=== PATIENT | female | born 1990 | race Caucasian/White ===

== ENCOUNTER 2016-11-19 17:23 | Emergency (ER) | payer BC ==
[~2016-11-19] VITALS: Ht 167.6 cm; Wt 72.1 kg
[~2016-11-19 17:23] MED LIST: BENZ2TAB5; BUSP30TA; HYDR453.3; HYDR50CA2; LAMO100T; MIRT30TA3; NALT50TA; QUET400T; TRAZ150T55; TRIA15CR
[2016-11-19] MEDS ORDERED: IV NORMAL SALINE 1000ML BAG 1,000 ML IV SCH (17:38)
[2016-11-19] MEDS ORDERED: 0.9 % SODIUM CHLORIDE 10 ML DISP.SYRIN. IV PRN (17:45)
--- NOTE | 2016-11-19 17:53 | PHYS DOC ---
Past Medical History Past Medical History: Anxiety, Bipolar, Depression, Seizure, Schizophrenia Past Surgical History: Appendectomy Smoking: Cigarettes Alcohol Use: None Drug Use: None Adult General Chief Complaint Chief Complaint: ABDOMINAL PAIN IN HPI HPI Joe is a pleasant 26-year-old female at about 2 weeks by last menstrual period is of lower crampy abdominal pain in the left and right that began early this morning. She did not know she was until this morning when she had 5 positive test at home. She's had mild spotting no active passage of clots or tissue. She denies any fevers denies any nausea or vomiting or diarrhea at this time. She denies any trauma denies any vaginal trauma or injury. She has had a history of HPV requiring a LEEP procedure and a prior appendectomy. She denies any other symptoms like back pain UTI symptoms like dysuria urgency or frequency. He denies any recent travel she is personally on clindamycin approximately day 8of 10 for a local cellulitic infection suspected to be MRSA. Review of Systems Review of Systems Constitutional: Denies fever or chills [] Eyes: Denies change in visual acuity, redness, or eye pain [] HENT: Denies nasal congestion or sore throat [] Respiratory: Denies cough or shortness of breath [] Cardiovascular: No additional information not addressed in HPI [] GI: No signs of lower abdominal pain described as crampy and achy over the left lower abdomen with radiation to the right lower abdomen. : Denies dysuria or hematuria [] Musculoskeletal: Denies back pain or joint pain [] Integument: Denies rash or skin lesions [] Neurologic: Denies headache, focal weakness or sensory changes [] Endocrine: Denies polyuria or polydipsia [] Family History Family History Noncontributory Current Medications Current Medications Current Medications Medications (Trade) Dose Ordered Sig/Gregg Start Time Stop Time Status Last Admin Dose Admin Sodium Chloride (Iv Sodium Chloride 0.9% 1000ml Bag) 1,000 ml @ 1,000 mls/hr Q1H 11/19/16 17:38 11/19/16 18:37 DC 11/19/16 18:07 1,000 MLS/HR Sodium Chloride (Normal Saline Flush) 10 ml QSHIFT PRN 11/19/16 17:45 Allergies Allergies Allergies Coded Allergies Type Severity Reaction Last Updated Verified Penicillins Allergy Intermediate 07/03/16 No cephalexin Allergy Intermediate 07/03/16 No doxycycline Allergy Intermediate 07/03/16 No hydrocodone Allergy Intermediate 07/03/16 No sulfamethoxazole Allergy Intermediate 07/03/16 No trimethoprim Allergy Intermediate 07/03/16 No Physical Exam Physical Exam Constitutional: Well developed, well nourished, no acute distress, non-toxic appearance. [] HENT: Normocephalic, atraumatic, bilateral external ears normal, oropharynx moist, no oral exudates, nose normal. [] Eyes: PERRLA, EOMI, conjunctiva normal, no discharge. [] Neck: Normal range of motion, no tenderness, supple, no stridor. [] Cardiovascular:Heart rate regular rhythm, no murmur [] Lungs & Thorax: Bilateral breath sounds clear to auscultation [] Abdomen: Abdomen is soft nontender nondistended no masses guarding rebound organomegaly patient has no Rovsing's and obturator sign. No Quiroz's or McBurney's point tenderness palpation Skin: Warm, dry, no erythema, no rash. [] Back: No tenderness, no CVA tenderness. [] Extremities: No tenderness, no cyanosis, no clubbing, ROM intact, no edema. [] Neurologic: Alert and oriented X 3, normal motor function, normal sensory function, no focal deficits noted. [] Psychologic: Affect normal, judgement normal, mood normal. [] Pelvic exam was deferred by patient Current Patient Data Vital Signs Vital Signs Date Time Temp Pulse Resp B/P Pulse Ox O2 Delivery O2 Flow Rate FiO2 11/19/16 19:33 86 120/60 98 Room Air 11/19/16 17:34 97.9 16 97.9 Lab Values Laboratory Tests Test 11/19/16 16:54 11/19/16 17:44 11/19/16 17:50 POC Urine HCG, Qualitative Hcg positive (Negative) Urine Collection Type Unknown Urine Color Yellow Urine Clarity Clear Urine pH 7.5 Urine Specific [place] 1.015 Urine Protein Negativemg/dL (NEG-TRACE) Urine Glucose (UA) Negativemg/dL (NEG) Urine Ketones (Stick) Negativemg/dL (NEG) Urine Blood Moderate (NEG) Urine Nitrite Negative (NEG) Urine Bilirubin Negative (NEG) Urine Urobilinogen Dipstick 0.2mg/dL (0.2 mg/dL) Urine Leukocyte Esterase Negative (NEG) Urine RBC 0/HPF (0-2) Urine WBC Occ/HPF (0-4) Urine Squamous Epithelial Cells Mod/LPF Urine Bacteria Few/HPF (0-FEW) White Blood Count 8.9x10^3/uL (4.0-11.0) Red Blood Count 4.83x10^6/uL (3.50-5.40) Hemoglobin 14.3g/dL (12.0-15.5) Hematocrit 42.9% (36.0-47.0) Mean Corpuscular Volume 89fL (79-100) Mean Corpuscular Hemoglobin 30pg (25-35) Mean Corpuscular Hemoglobin Concent 33g/dL (31-37) Red Cell Distribution Width 14.0% (11.5-14.5) Platelet Count 362x10^3/uL (140-400) Neutrophils (%) (Auto) 64% (31-73) Lymphocytes (%) (Auto) 28% (24-48) Monocytes (%) (Auto) 6% (0-9) Eosinophils (%) (Auto) 1% (0-3) Basophils (%) (Auto) 1% (0-3) Neutrophils # (Auto) 5.7x10^3uL (1.8-7.7) Lymphocytes # (Auto) 2.5x10^3/uL (1.0-4.8) Monocytes # (Auto) 0.5x10^3/uL (0.0-1.1) Eosinophils # (Auto) 0.1x10^3/uL (0.0-0.7) Basophils # (Auto) 0.1x10^3/uL (0.0-0.2) Maternal Serum HCG Beta Subunit 165mIU/mL (0-6) H Sodium Level 141mmol/L (136-145) Potassium Level 4.2mmol/L (3.5-5.1) Chloride Level 102mmol/L (98-107) Carbon Dioxide Level 30mmol/L (21-32) Anion Gap 9 (6-14) Blood Urea Nitrogen 12mg/dL (7-20) Creatinine 0.7mg/dL (0.6-1.0) Estimated GFR (Cockcroft-Gault) 102.8 BUN/Creatinine Ratio 17 (6-20) Glucose Level 78mg/dL (70-99) Calcium Level 9.3mg/dL (8.5-10.1) Total Bilirubin 0.3mg/dL (0.2-1.0) Aspartate Amino Transferase (AST) 17U/L (15-37) Alanine Aminotransferase (ALT) 32U/L (14-59) Alkaline Phosphatase 73U/L (46-116) Total Protein 7.5g/dL (6.4-8.2) Albumin 4.1g/dL (3.4-5.0) Albumin/Globulin Ratio 1.2 (1.0-1.7) Laboratory Tests 11/19/16 17:50 Laboratory Tests 11/19/16 17:50 EKG EKG [] Radiology/Procedures Radiology/Procedures [] Course & Med Decision Making Course & Med Decision Making Pertinent Labs and Imaging studies reviewed. (See chart for details) [Patient is a 26-year-old female who did not know she is early this morning we will need to ascertain whether is tubal ectopic patient's blood will be checked as well as quantitative hCG ultrasound and pelvic exam. Patient is presently with minimal pain hemodynamics stable as includes ovarian cyst, ovarian torsion, ectopic , early , UTI, kidney stone, diverticulitis, diverticulosis, not actual trauma, .] Signed PATIENT: JAZMINE KESSLER ACCOUNT: [id number] : 1990 LOCATION: ER AGE: 26 SEX: F EXAM STATUS: REG ER ORD. PHYSICIAN: CARLIN GALVIN MD REASON: abdominal pain PROCEDURE: OB <14 WKS W/TV Ultrasound Pelvis Indication:[Pelvic pain. Positive home test grayscale images were obtained over the pelvis transabdominally and transvaginally . Color Doppler imaging was utilized. Findings: The uterus is normal in size measuring 6.2 x 3.6 x 2.4 cm. The endometrium is within normal limits measuring less than 5 millimeters. There is a small amount of endometrial fluid. No gestational sac is appreciated. The right ovary is normal in size measuring 4.2 x 2.7 x 1.9 centimeters. Several follicles are noted, the largest of which measuring 1.4 centimeters. Normal ovarian arterial blood flow is noted. The left ovary measures 3.0 x 2.2 x 1.2cm. No abnormal left ovarian lesions are identified. Normal blood flow is identified. Amount of free fluid in the posterior cul-de-sac. Impression: - Pelvic sonogram within normal limits apart from mild fluid within the endometrial canal. No endometrial gestational sac is identified. Beta HCG was not available at the time of interpretation. If positive, follow-up sonogram is recommended. Electronically signed by: Víctor Brown (November 19, 2016 19:04:31) DICTATED and SIGNED BY: VÍCTOR BROWN MD DATE: 11/19/16 190 CC: CARLIN GALVIN MD; NO PCP ~ History is very comfortable she and I reviewed results of all laboratory work including hCG which has a level of 165. Ultrasound was completed demonstrating changes consistent with but no gestational sac or obvious endometrial sac was then applied. She was given precautions she realizes the limitation of not completing physical exam here in the emergency department she was also asked to return for worsening symptoms increasing bleeding or other weakness and expanding belly belly pain with bleeding. Patient is also asked to follow- up with her primary care doctor for repeat quantitative hCG in 48 hours either with her primary care doctor or here in the emergency department if symptoms continue. It is imperative that she have a repeat ultrasound to ensure that this is not in the full contusion or outside the uterus. She understands this risk and will follow up with her primary care doctor. It is noted that she is hemodynamics stable and abdomen is soft on discharge. We discussed the possibility of status as also cause for symptoms. And reasons to return. I told her if she was not able to make follow-up arrangements for her repeat blood work she come here at [facility] if necessary to ensure that she was safe. He was also given a handout with all local PCPs and are accepting new patients. Dragon Disclaimer Dragon Disclaimer This electronic medical record was generated, in whole or in part, using a voice recognition dictation system. Departure Departure Impression: Primary Impression: Threatened Additional Impressions: Abdominal pain Nausea & vomiting Disposition: HOME, SELF-CARE Referrals: NO PCP (PCP) Patient Instructions: Abdominal Pain During , Nausea and Vomiting, Threatened Miscarriage Scripts Ondansetron (Zofran Odt)4 Mg Tab.rapdis1 Tab SL Q8HRS #10 TAB Prov:CARLIN GALVIN MD 11/19/16 Acetaminophen (Tylenol)325 Mg Tablet1-2 Tab PO QID #60 TAB Ref 2 Prov:CARLIN GALVIN MD 11/19/16 Problem Qualifiers CARLIN GALVIN MD November 19, 2016 17:53
[2016-11-19 18:09] LABS: BILIRUBIN,URINE NEGATIVE (NEG); GLUCOSE,URINE NEGATIVE (NEG); NITRITE,URINE NEGATIVE (NEG); PH,URINE 7.5; PROTEIN,URINE NEGATIVE (NEG-TRACE); UROBILINOGEN,URINE 0.2 mg/dL (0.2 mg/dL)
[2016-11-19 18:17] LABS: BACTERIA,URINE FEW /HPF (0-FEW); RBC,URINE 0 /HPF (0-2); SQUAMOUS EPITHELIAL CELL,UR MOD /LPF; WBC,URINE OCC /HPF (0-4)
[2016-11-19 18:28] LABS: BASO # 0.1 x10^3/uL (0.0-0.2); BASO % 1 % (0-3); EOS % 1 % (0-3); HEMATOCRIT 42.9 % (36.0-47.0); HEMOGLOBIN 14.3 g/dL (12.0-15.5); LYMPH # 2.5 x10^3/uL (1.0-4.8); LYMPH % 28 % (24-48); MEAN CORPUSCULAR HEMOGLOBIN 30 pg (25-35); MEAN CORPUSCULAR HGB CONC 33 g/dL (31-37); MEAN CORPUSCULAR VOLUME 89 fL (79-100); MONO % 6 % (0-9); NEUT % 64 % (31-73); PLATELET COUNT 362 x10^3/uL (140-400); RED BLOOD COUNT 4.83 x10^6/uL (3.50-5.40); WHITE BLOOD COUNT 8.9 x10^3/uL (4.0-11.0)
[2016-11-19 18:43] LABS: CALCIUM 9.3 mg/dL (8.5-10.1); CREATININE 0.7 mg/dL (0.6-1.0); GFR 102.8; POTASSIUM 4.2 mmol/L (3.5-5.1)
[2016-11-19 18:48] LABS: ALBUMIN 4.1 g/dL (3.4-5.0); ALBUMIN/GLOBULIN RATIO 1.2 (1.0-1.7); TOTAL BILIRUBIN 0.3 mg/dL (0.2-1.0); TOTAL PROTEIN 7.5 g/dL (6.4-8.2)
--- NOTE | 2016-11-19 19:05 | RAD ---
Ultrasound Pelvis Indication:[Pelvic pain. Positive home test grayscale images were obtained over the pelvis transabdominally and transvaginally . Color Doppler imaging was utilized. Findings: The uterus is normal in size measuring 6.2 x 3.6 x 2.4 cm. The endometrium is within normal limits measuring less than 5 millimeters. There is a small amount of endometrial fluid. No gestational sac is appreciated. The right ovary is normal in size measuring 4.2 x 2.7 x 1.9 centimeters. Several follicles are noted, the largest of which measuring 1.4 centimeters. Normal ovarian arterial blood flow is noted. The left ovary measures 3.0 x 2.2 x 1.2cm. No abnormal left ovarian lesions are identified. Normal blood flow is identified. Amount of free fluid in the posterior cul-de-sac. Impression: - Pelvic sonogram within normal limits apart from mild fluid within the endometrial canal. No endometrial gestational sac is identified. Beta HCG was not available at the time of interpretation. If positive, follow-up sonogram is recommended. Electronically signed by: Víctor Brown (November 19, 2016 19:04:31)
[2016-11-19 19:33] VITALS: BP 120/60
[2016-11-19] MEDS ORDERED: ONDA4TAB10 SL (19:43)
[2016-11-19] MEDS ORDERED: ACET325T9 PO (19:43)
== END 2016-11-19 20:04 | disposition home or self-care (01) ==
LOC: ER 17:23
DX: O20.0 Threatened abortion (principal); R11.2 Nausea with vomiting, unspecified; F20.9 Schizophrenia, unspecified; F31.9 Bipolar disorder, unspecified; F32.9 Major depressive disorder, single episode, unspecified; F41.9 Anxiety disorder, unspecified; F17.210 Nicotine dependence, cigarettes, uncomplicated; Z90.49 Acquired absence of other specified parts of digestive tract
CPT/HCPCS: 36415; 76801; 76817; 80053; 81001; 84702; 84703; 85027; 86850; 86900; 86901; 96360; 99285; J7030; 81025

== ENCOUNTER 2016-11-20 22:22 | Emergency (ER) | payer BC ==
[~2016-11-20] VITALS: Ht 177.8 cm; Wt 72.1 kg
[~2016-11-20 22:22] MED LIST changes: +ACET325T9 PO; +ONDA4TAB10 SL
[2016-11-20 23:20] LABS: BILIRUBIN,URINE NEGATIVE (NEG); GLUCOSE,URINE NEGATIVE (NEG); NITRITE,URINE NEGATIVE (NEG); PH,URINE 5.5; PROTEIN,URINE NEGATIVE (NEG-TRACE); UROBILINOGEN,URINE 0.2 mg/dL (0.2 mg/dL)
[2016-11-20 23:30] LABS: BACTERIA,URINE 0 /HPF (0-FEW); RBC,URINE 0 /HPF (0-2); SQUAMOUS EPITHELIAL CELL,UR FEW /LPF; WBC,URINE 0 /HPF (0-4)
[2016-11-20 23:44] LABS: BASO # 0.1 x10^3/uL (0.0-0.2); BASO % 1 % (0-3); EOS % 1 % (0-3); HEMATOCRIT 43.4 % (36.0-47.0); HEMOGLOBIN 14.5 g/dL (12.0-15.5); LYMPH # 2.7 x10^3/uL (1.0-4.8); LYMPH % 20 % (24-48); MEAN CORPUSCULAR HEMOGLOBIN 30 pg (25-35); MEAN CORPUSCULAR HGB CONC 33 g/dL (31-37); MEAN CORPUSCULAR VOLUME 90 fL (79-100); MONO % 5 % (0-9); NEUT % 74 % (31-73); PLATELET COUNT 365 x10^3/uL (140-400); RED BLOOD COUNT 4.85 x10^6/uL (3.50-5.40); RED CELL DISTRIBUTION WIDTH 14.4 % (11.5-14.5); WHITE BLOOD COUNT 13.8 x10^3/uL (4.0-11.0)
[2016-11-20] MEDS ORDERED: fentaNYL PF VIAL 100 MCG/2 ML VIAL IV ONE (23:45)
[2016-11-20 23:57] LABS: CALCIUM 9.3 mg/dL (8.5-10.1); CREATININE 0.8 mg/dL (0.6-1.0); GFR 88.1; POTASSIUM 4.2 mmol/L (3.5-5.1)
[2016-11-21] VITALS: BP 109/60
[2016-11-21 00:04] LABS: ALBUMIN 4.4 g/dL (3.4-5.0); TOTAL BILIRUBIN 0.3 mg/dL (0.2-1.0); TOTAL PROTEIN 8.6 g/dL (6.4-8.2)
[2016-11-21] MEDS ORDERED: OXYC-323 PO (00:12)
--- NOTE | 2016-11-21 00:13 | PHYS DOC ---
Past Medical History Past Medical History: Anxiety, Bipolar, Depression, Seizure, Schizophrenia Past Surgical History: Appendectomy Alcohol Use: None Drug Use: None Adult General Chief Complaint Chief Complaint: ABDOMINAL PAIN IN HPI HPI Patient is a 26 year old female G1 approx 2wks who presents with continued left and mid lower abdominal cramping pains associated with vaginal bleeding and clots. Pain is moderate, constant. She was seen yesterday here for same and states bleeding is worse. She does not have an OB appointment yet. She has been taking tylenol prn pain. She denies f/c, n/v, diarrhea, constipation, fatigue, lightheadedness. Had bloodwork and OB ultrasound yesterday. Diagnosed with of unknown location and threatened miscarriage. Review of Systems Review of Systems Constitutional: Denies fever or chills [] Eyes: Denies change in visual acuity, redness, or eye pain [] HENT: Denies nasal congestion or sore throat [] Respiratory: Denies cough or shortness of breath [] Cardiovascular: No additional information not addressed in HPI [] GI: Denies nausea, vomiting, bloody stools or diarrhea [] : Denies dysuria or hematuria [] Musculoskeletal: Denies back pain or joint pain [] Integument: Denies rash or skin lesions [] Neurologic: Denies headache, focal weakness or sensory changes [] Endocrine: Denies polyuria or polydipsia [] Current Medications Current Medications Current Medications Medications (Trade) Dose Ordered Sig/Gregg Start Time Stop Time Status Last Admin Dose Admin Fentanyl Citrate (Fentanyl 2ml Vial) 50 mcg 1X ONCE 11/20/16 23:45 11/20/16 23:46 DC 11/20/16 23:43 50 MCG Ketorolac Tromethamine (Toradol) 15 mg 1X ONCE 11/21/16 00:15 11/21/16 00:19 DC Allergies Allergies Allergies Coded Allergies Type Severity Reaction Last Updated Verified Penicillins Allergy Intermediate 07/03/16 No cephalexin Allergy Intermediate 07/03/16 No doxycycline Allergy Intermediate 07/03/16 No hydrocodone Allergy Intermediate 07/03/16 No sulfamethoxazole Allergy Intermediate 07/03/16 No trimethoprim Allergy Intermediate 07/03/16 No Physical Exam Physical Exam Constitutional: Well developed, well nourished, no acute distress, non-toxic appearance. [] HENT: Normocephalic, atraumatic, bilateral external ears normal, oropharynx moist, nose normal. [] Eyes: PERRLA, EOMI. [] Neck: Normal range of motion, supple. [] Cardiovascular:Heart rate regular rhythm [] Lungs & Thorax: Bilateral breath sounds clear to auscultation [] Abdomen: Bowel sounds normal, soft, minimal suprapubic tenderness, no guarding or rebound. [] Skin: Warm, dry, no erythema, no rash. [] Back: No tenderness, no CVA tenderness. [] Extremities: No tenderness, ROM intact, no edema. [] Neurologic: Alert and oriented X 3, normal motor function, normal sensory function, no focal deficits noted. [] Psychologic: Affect normal, judgement normal, mood normal. [] Current Patient Data Vital Signs Vital Signs Date Time Temp Pulse Resp B/P (MAP) Pulse Ox O2 Delivery O2 Flow Rate FiO2 11/21/16 00:00 20 98 Room Air 11/21/16 00:00 84 109/60 (76) 11/20/16 23:11 98.1 98.1 Lab Values Laboratory Tests Test 11/20/16 22:02 11/20/16 22:30 11/20/16 23:30 POC Urine HCG, Qualitative Hcg positive (Negative) Urine Collection Type Unknown Urine Color Yellow Urine Clarity Clear Urine pH 5.5 Urine Specific [place] 1.010 Urine Protein Negative mg/dL (NEG-TRACE) Urine Glucose (UA) Negative mg/dL (NEG) Urine Ketones (Stick) Negative mg/dL (NEG) Urine Blood Trace (NEG) Urine Nitrite Negative (NEG) Urine Bilirubin Negative (NEG) Urine Urobilinogen Dipstick 0.2 mg/dL (0.2 mg/dL) Urine Leukocyte Esterase Negative (NEG) Urine RBC 0 /HPF (0-2) Urine WBC 0 /HPF (0-4) Urine Squamous Epithelial Cells Few /LPF Urine Bacteria 0 /HPF (0-FEW) White Blood Count 13.8 x10^3/uL (4.0-11.0) #H Red Blood Count 4.85 x10^6/uL (3.50-5.40) Hemoglobin 14.5 g/dL (12.0-15.5) Hematocrit 43.4 % (36.0-47.0) Mean Corpuscular Volume 90 fL (79-100) Mean Corpuscular Hemoglobin 30 pg (25-35) Mean Corpuscular Hemoglobin Concent 33 g/dL (31-37) Red Cell Distribution Width 14.4 % (11.5-14.5) Platelet Count 365 x10^3/uL (140-400) Neutrophils (%) (Auto) 74 % (31-73) H Lymphocytes (%) (Auto) 20 % (24-48) L Monocytes (%) (Auto) 5 % (0-9) Eosinophils (%) (Auto) 1 % (0-3) Basophils (%) (Auto) 1 % (0-3) Neutrophils # (Auto) 10.2 x10^3uL (1.8-7.7) H Lymphocytes # (Auto) 2.7 x10^3/uL (1.0-4.8) Monocytes # (Auto) 0.6 x10^3/uL (0.0-1.1) Eosinophils # (Auto) 0.1 x10^3/uL (0.0-0.7) Basophils # (Auto) 0.1 x10^3/uL (0.0-0.2) Maternal Serum HCG Beta Subunit 77 mIU/mL (0-6) H Sodium Level 139 mmol/L (136-145) Potassium Level 4.2 mmol/L (3.5-5.1) Chloride Level 102 mmol/L (98-107) Carbon Dioxide Level 26 mmol/L (21-32) Anion Gap 11 (6-14) Blood Urea Nitrogen 13 mg/dL (7-20) Creatinine 0.8 mg/dL (0.6-1.0) Estimated GFR (Cockcroft-Gault) 88.1 BUN/Creatinine Ratio 16 (6-20) Glucose Level 72 mg/dL (70-99) Calcium Level 9.3 mg/dL (8.5-10.1) Total Bilirubin 0.3 mg/dL (0.2-1.0) Aspartate Amino Transferase (AST) 17 U/L (15-37) Alanine Aminotransferase (ALT) 31 U/L (14-59) Alkaline Phosphatase 78 U/L (46-116) Total Protein 8.6 g/dL (6.4-8.2) H Albumin 4.4 g/dL (3.4-5.0) Albumin/Globulin Ratio 1.0 (1.0-1.7) Laboratory Tests 11/20/16 23:30 Laboratory Tests 11/20/16 23:30 Course & Med Decision Making Course & Med Decision Making Pertinent Labs and Imaging studies reviewed. (See chart for details) Quant HCG is downtrending; labs are otherwise unremarkable. Continues to have minimal abdominal tenderness, but pain is greatly improved after medications here. Vitals have remained stable. Will not repeat imaging today. Discussed likely having and needs to f/u with OB within 2 days. Return precautions given. She understands and agrees with plan. Dragon Disclaimer Dragon Disclaimer This electronic medical record was generated, in whole or in part, using a voice recognition dictation system. Departure Departure Impression: Primary Impression: Threatened Disposition: HOME, SELF-CARE Condition: STABLE Referrals: NO PCP (PCP) Patient Instructions: Miscarriage, [id number] Additional Instructions: Take Tylenol or ibuprofen as needed for moderate pain. Take oxycodone as needed for severe pain. Do not drink, drive or operate heavy machinery after taking oxycodone as it may make you sleepy. Follow-up with OB clinic within 2 days. Please call for appointment. Return for any concerns. Scripts Oxycodone/Apap 5-325 (PERCOCET 5-325 MG TABLET) 1 Each Tablet 1-2 TAB PO Q4-6HRS Y for PAIN, #10 TAB Prov: Juana CABALLERO MD 11/21/16 Juana CABALLERO MD November 21, 2016 00:13
[2016-11-21] MEDS ORDERED: KETOROLAC TROMETHAMINE 30 MG/ML INJ. IV ONE (00:15)
== END 2016-11-21 00:19 | disposition home or self-care (01) ==
LOC: ER 22:22
DX: O20.0 Threatened abortion (principal); Z3A.01 Less than 8 weeks gestation of pregnancy; F20.9 Schizophrenia, unspecified; F31.9 Bipolar disorder, unspecified; Z90.49 Acquired absence of other specified parts of digestive tract; Z88.0 Allergy status to penicillin; Z88.1 Allergy status to other antibiotic agents; Z88.2 Allergy status to sulfonamides; Z88.5 Allergy status to narcotic agent; Z88.8 Allergy status to other drugs, medicaments and biological substances
CPT/HCPCS: 36415; 80053; 81001; 81025; 84702; 85027; 96374; 99285; J3010

== ENCOUNTER 2017-01-05 21:34 | Emergency (ER) | payer BC ==
[~2017-01-05] VITALS: Ht 167.6 cm; Wt 77.6 kg
[~2017-01-05 21:34] MED LIST changes: +OXYC-323 PO; +TRAZ150T49; -TRAZ150T55
[2017-01-05 22:12] VITALS: BP 141/69
[2017-01-05] MEDS ORDERED: IV NORMAL SALINE 1000ML BAG 1,000 ML IV ONE (23:00)
[2017-01-05] MEDS ORDERED: ACETAMINOPHEN 325 MG TABLET. PO ONE (23:45)
[2017-01-06] MEDS ORDERED: ONDANSETRON PF 4 MG/2 ML VIAL. IV ONE
[2017-01-06 00:12] LABS: BASO # 0.1 x10^3/uL (0.0-0.2); BASO % 1 % (0-3); EOS % 1 % (0-3); HEMATOCRIT 40.4 % (36.0-47.0); HEMOGLOBIN 13.6 g/dL (12.0-15.5); LYMPH # 2.4 x10^3/uL (1.0-4.8); LYMPH % 25 % (24-48); MEAN CORPUSCULAR HEMOGLOBIN 31 pg (25-35); MEAN CORPUSCULAR HGB CONC 34 g/dL (31-37); MEAN CORPUSCULAR VOLUME 92 fL (79-100); MONO % 5 % (0-9); NEUT % 69 % (31-73); PLATELET COUNT 284 x10^3/uL (140-400); RED BLOOD COUNT 4.42 x10^6/uL (3.50-5.40); RED CELL DISTRIBUTION WIDTH 14.1 % (11.5-14.5); WHITE BLOOD COUNT 9.8 x10^3/uL (4.0-11.0)
[2017-01-06 00:14] LABS: BILIRUBIN,URINE NEGATIVE (NEG); GLUCOSE,URINE NEGATIVE (NEG); NITRITE,URINE NEGATIVE (NEG); PROTEIN,URINE NEGATIVE (NEG-TRACE); UROBILINOGEN,URINE 0.2 mg/dL (0.2 mg/dL)
[2017-01-06 00:19] LABS: BACTERIA,URINE 0 /HPF (0-FEW); BARBITURATES NEG (NEG); BENZODIAZEPINES NEG (NEG); CALCIUM 9.7 mg/dL (8.5-10.1); CANNABINOIDS NEG (NEG); COCAINE NEG (NEG); CREATININE 0.7 mg/dL (0.6-1.0); GFR 102.8; METHADONE NEG (NEG); OPIATES NEG (NEG); PHENCYCLIDINE NEG (NEG); POTASSIUM 4.4 mmol/L (3.5-5.1); RBC,URINE 0 /HPF (0-2); SQUAMOUS EPITHELIAL CELL,UR FEW /LPF; WBC,URINE OCC /HPF (0-4)
[2017-01-06 00:25] LABS: ALBUMIN 4.1 g/dL (3.4-5.0); ALBUMIN/GLOBULIN RATIO 1.2 (1.0-1.7); TOTAL BILIRUBIN 0.4 mg/dL (0.2-1.0); TOTAL PROTEIN 7.6 g/dL (6.4-8.2)
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
--- NOTE | 2017-01-06 08:28 | EKG ---
[facility] [address] [place] [address] Test Date: 2017-01-05 Test Time: 21:56:10 Pat Name: JAZMINE KESSLER Department: Room: Gender: F Claims Adjudicator: : 1990 Requested By: ASHLEY LEYVA Order Number: [id number] Reading MD: Eduardo Ruff Measurements Intervals [place] Rate: 78 P: 47 OR: 160 QRS: 43 QRSD: 90 T: 41 QT: 368 QTc: 423 Interpretive Statements SINUS RHYTHM LEFT ATRIAL ABNORMALITY S1,S2,S3 PATTERN RI6.01 Unconfirmed report Compared to ECG 07/03/2016 01:59:37 Atrial abnormality now present Incomplete right bundle-branch block no longer present Electronically Signed On 01-07-2017 11:19:00 CDT by Eduardo Ruff
== END 2017-01-06 00:59 | disposition home or self-care (01) ==
LOC: ER 21:34
DX: R56.9 Unspecified convulsions (principal); F31.9 Bipolar disorder, unspecified; F41.9 Anxiety disorder, unspecified; F32.9 Major depressive disorder, single episode, unspecified; F20.9 Schizophrenia, unspecified; Z90.49 Acquired absence of other specified parts of digestive tract; Z88.0 Allergy status to penicillin; Z88.1 Allergy status to other antibiotic agents; Z88.2 Allergy status to sulfonamides; Z88.6 Allergy status to analgesic agent
CPT/HCPCS: 36415; 80053; 80305; 80320; 81001; 81025; 85027; 93005; 96361; 96374; 99285; J2405; J7030; G0480; G0481